=== PATIENT | female | born 1985 | race Two or more races ===

== ENCOUNTER → 2023-08-13 | Emergency (ER) | payer OTHER ==
[~2023-08-13] VITALS: Ht 162.6 cm; Wt 72.6 kg
[~2023-08-13] MED LIST: HYZAAR 50-12.51 EACH PO; TOPROL XL25 M1 PO
== END | disposition home or self-care (01) ==
LOC: ER 12:27 → EDBD 12:39
PROVIDERS: General Practice
DX: E87.6 Hypokalemia (principal); Z20.822 Contact with and (suspected) exposure to COVID-19